=== PATIENT | female | born 1985 | race Caucasian/White ===

== ENCOUNTER 2025-06-26 10:33 | Outpatient (CLI) | payer OTHER | END 2025-06-26 10:34 | disposition home or self-care (01) | LOC: BICMAMMO 10:33 | PROVIDERS: ATTEND Nurse Practitioner Family | DX: Z12.31 Encounter for screening mammogram for malignant neoplasm of breast (principal); R92.343 Mammographic extreme density, bilateral breasts; Z80.3 Family history of malignant neoplasm of breast | CPT/HCPCS: 77063; 77067 ==